=== PATIENT | female | born 1990 | race Two or more races ===

== ENCOUNTER 2017-08-02 10:49 | Observation (INO) | payer MEDICAID, OTHER ==
[~2017-08-02] VITALS: Ht 175.3 cm; Wt 68.0 kg
[2017-08-02 12:09] LABS: Basophils # (auto) 0.1 uL; Basophils % (auto) 0.8 % (0.0-2.0); Eosinophils # (auto) 0.1 uL; Eosinophils % (auto) 1.1 % (0.0-7.0); Hematocrit 41.8 % (36.0-46.0); Hemoglobin 13.8 g/dL (12.2-16.2); Lymphocytes # (auto) 1.9 uL; Lymphocytes % (auto) 26.1 % (10.0-50.0); Mean Corpuscular Hemoglobin 28.8 pg (28.0-32.0); Mean Corpuscular Hgb Conc. 33.1 g/dL (32.0-36.0); Mean Platelet Volume 9.4 fL (6.9-10.8); Monocytes # (auto) 0.4 uL; Monocytes % (auto) 4.9 % (0.0-12.0); Neutrophils # (auto) 4.9 uL; Neutrophils % (auto) 67.1 % (37.0-80.0); Platelet Count (auto) 233 10^3/uL (140-450); White Blood Cell 7.3 10^3/uL (4.4-10.8)
[2017-08-02 12:35] LABS: Albumin 4.4 g/dL (3.4-5.0); BUN/Creatinine Ratio 12.5; Bilirubin, Total 0.3 mg/dL (0.2-1.0); Calcium 9.5 mg/dL (8.5-10.1); Potassium 4.3 mmol/L (3.5-5.1); Total Protein 7.9 g/dL (6.4-8.2)
[2017-08-02 12:45] LABS: Urine Bilirubin Negative (Negative); Urine Blood Negative /uL (Negative); Urine Color Yellow (Yellow); Urine Glucose Normal (Normal); Urine Ketone Negative (Negative); Urine Nitrite Negative (Negative); Urine RBC <1 /hpf (0 - 4); Urine Squamous Epithelial Cell FEW /hpf (<5); Urine Urobilinogen Normal (Negative); Urine pH 6.5 (5.0-8.0)
[2017-08-02 16:49] VITALS: BP 117/72
== END 2017-08-02 11:19 | disposition home or self-care (01) | DRG 384 ==
LOC: ER 10:49 → OVERFLOW 11:08 → ER 17:27
PROVIDERS: ADMIT Family Medicine; ATTEND Family Medicine
DX: S30.1XXA Contusion of abdominal wall, initial encounter (principal); F32.9 Major depressive disorder, single episode, unspecified; F41.9 Anxiety disorder, unspecified; S63.502A Unspecified sprain of left wrist, initial encounter; X58.XXXA Exposure to other specified factors, initial encounter; Y93.89 Activity, other specified; Y92.89 Other specified places as the place of occurrence of the external cause; Y99.8 Other external cause status
CPT/HCPCS: 36415; 71010; 73110; 73200; 74176; 80053; 81001; 85025; 99285; G0378

== ENCOUNTER 2017-08-16 11:08 | Emergency (ER) | payer MEDICAID ==
[~2017-08-16] VITALS: Ht 175.3 cm; Wt 67.1 kg
[2017-08-16 11:40] VITALS: BP 114/78
== END 2017-08-16 12:34 | disposition home or self-care (01) ==
LOC: ER 11:08
DX: S60.212D Contusion of left wrist, subsequent encounter (principal); M54.9 Dorsalgia, unspecified; X58.XXXD Exposure to other specified factors, subsequent encounter

== ENCOUNTER 2022-02-22 13:00 | Emergency (ER) | payer MEDICAID ==
[~2022-02-22] VITALS: Ht 175.3 cm; Wt 62.6 kg
[2022-02-22 13:14] VITALS: BP 127/74
[2022-02-22 15:11] LABS: Basophils # (auto) 0.1 10 ^3/uL (0-0.2); Basophils % (auto) 1.3 % (0.0-2.0); Eosinophils # (auto) 0.1 10 ^3/uL (0-0.8); Eosinophils % (auto) 2.3 % (0.0-7.0); Hematocrit 43.2 % (36.0-46.0); Hemoglobin 14.3 g/dL (12.2-16.2); Lymphocytes # (auto) 1.7 10 ^3/uL (0.4-5.4); Lymphocytes % (auto) 31.7 % (10.0-50.0); Mean Corpuscular Hemoglobin 28.6 pg (28.0-32.0); Mean Corpuscular Hgb Conc. 33.2 g/dL (32.0-36.0); Mean Corpuscular Volume 86.2 fL (80.0-100.0); Monocytes # (auto) 0.3 10 ^3/uL (0-1.3); Monocytes % (auto) 6.4 % (0.0-12.0); Neutrophils # (auto) 3.2 10 ^3/uL (1.6-8.6); Neutrophils % (auto) 58.3 % (37.0-80.0); Nucleated Red Blood Cells % 0.1 %; Red Blood Cells 5.01 10^6/uL (4.0-5.20); Red Cell Distribution Width 13.8 % (11.8-14.3); White Blood Cell 5.5 10^3/uL (4.4-10.8)
[2022-02-22 15:31] LABS: Albumin 4.1 g/dL (3.4-5.0); Potassium 3.7 mmol/L (3.5-5.1)
[2022-02-22 15:33] LABS: BUN/Creatinine Ratio 6.8
[2022-02-22 15:35] LABS: Salicylate < 1.7 mg/dL (2.8-20.0)
[2022-02-22 15:36] LABS: Bilirubin, Total 0.3 mg/dL (0.2-1.0); Total Protein 7.7 g/dL (6.4-8.2)
[2022-02-22 15:40] LABS: Acetaminophen < 2.0 ug/mL (10-30)
[2022-02-22 16:55] LABS: Amphetamine Screen, Urine NEGATIVE (NEGATIVE); Barbiturate Scree,Urine NEGATIVE (NEGATIVE); Benzodiazephine Screen, Urine NEGATIVE (NEGATIVE); Cannabinoid Screen, Urine POSITIVE (NEGATIVE); Cocaine Screen, Urine NEGATIVE (NEGATIVE); Opiate Scree,Urine NEGATIVE (NEGATIVE); Phencyclidine Screen, Urine NEGATIVE (NEGATIVE)
[2022-02-22 16:56] LABS: Urine Bacteria NONE SEEN /hpf (None Seen); Urine Blood Negative /uL (Negative); Urine Specific Gravity 1.008 (1.001-1.035); Urine WBC 1 /hpf (0 - 5)
== END 2022-02-22 22:00 | disposition home or self-care (01) ==
LOC: ER 13:00
DX: R44.0 Auditory hallucinations (principal); F12.10 Cannabis abuse, uncomplicated; F41.9 Anxiety disorder, unspecified; F32.9 Major depressive disorder, single episode, unspecified
CPT/HCPCS: 36415; 80053; 80307; 80320; 80329; 81001; 85025